=== PATIENT | female | born 1980 | race Caucasian/White ===

== ENCOUNTER 2024-04-16 17:04 | Outpatient (CLI) | payer BC, SELFPAY | END 2024-04-16 17:05 | disposition home or self-care (01) | LOC: NFLDREF 04-20 04:21 | PROVIDERS: PCP Family Medicine; Referring Provider Family Medicine; Visit Provider Nurse Practitioner | DX: R19.7 Diarrhea, unspecified (principal) | CPT/HCPCS: 87493 ==